=== PATIENT | female | born 2000 | race Caucasian/White ===

== ENCOUNTER 2021-03-04 22:29 | Emergency (ER) | payer SELFPAY ==
[~2021-03-04] VITALS: Ht 170.2 cm; Wt 72.6 kg
[2021-03-04 22:34] VITALS: BP 128/75
--- NOTE | 2021-03-04 23:02 | NUR ---
PATIENT LEFT WITHOUT BEING SEEN BY DR. Hardy. NO FURTHER CARE PROVIDED FOR PATIENT.
== END 2021-03-04 23:02 | disposition left against medical advice (07) ==
LOC: MED 22:29
DX: R20.0 Anesthesia of skin (principal); Z53.21 Procedure and treatment not carried out due to patient leaving prior to being seen by health care provider